=== PATIENT | male | born 1960 | race Caucasian/White ===

== ENCOUNTER → 2022-06-28 | Outpatient (CLI) | payer OTHER ==
--- NOTE | 2022-06-28 08:54 | US ---
EXAMINATION TYPE: US carotid duplex BILAT DATE OF EXAM: 06/28/2022 COMPARISON: NONE CLINICAL HISTORY: R42 DIZZINESS AND GIDDINESS I10 HTN. Vertigo TECHNIQUE: Carotid duplex ultrasound examination. Indirect Doppler criteria was utilized. FINDINGS: EXAM MEASUREMENTS: RIGHT: Peak Systolic Velocity (PSV) cm/sec ----- Right CCA: 60.3 ----- Right ICA: 52.7 ----- Right ECA: 58.3 ICA/CCA ratio: .87 RIGHT: End Diastole cm/sec ----- Right CCA: 19.9 ----- Right ICA: 22.9 ----- Right ECA: 12.0 LEFT: Peak Systolic Velocity (PSV) cm/sec ----- Left CCA: 73.2 ----- Left ICA: 46.0 ----- Left ECA: 19.2 ICA/CCA ratio: .63 LEFT: End Diastole cm/sec ----- Left CCA: 16.2 ----- Left ICA: 15.7 ----- Left ECA: 4.7 VERTEBRALS (direction of flow): Right Vertebral: Antegrade Left Vertebral: Antegrade Rhythm: Normal CLAMP REMOVER NOTES: No significant stenosis seen. No elevated velocities visualized. IMPRESSION: No evidence for hemodynamically significant stenosis. Criteria for Assigning % of Stenosis / Diameter reduction (Estimation based on the indirect measurements of the internal carotid artery velocities (ICA PSV). 1. Normal (no stenosis)=ICA PSV < 125 cm/s: ratio < 2.0: ICA EDV<40 cm/s. 2. Less than 50% stenosis=ICA PSV < 125 cm/s: ratio < 2.0: ICA EDV<40 cm/s. 3. 50 to 69% stenosis=ICA PSV of 125 to 230 cm/s: ration 2.0 ? 4.0: ICA EDV 40-100 cm/s. 4. Greater than 70% stenosis to near occlusion= ICA PSV > 230 cm/s: ratio > 4.0: ICA EDV > 100 cm/s. 5. Near occlusion= ICA PSV velocities may be low or undetectable: variable ratio and ICA EDV. 6. Total occlusion=unable to detect flow.
== END | disposition home or self-care (01) ==
LOC: RADUSWWP 06:58
PROVIDERS: ATTEND Family Medicine
DX: R42 Dizziness and giddiness (principal); I10 Essential (primary) hypertension
CPT/HCPCS: 93880